=== PATIENT | female | born 1995 | race Caucasian/White ===

== ENCOUNTER 2017-01-30 20:27 | Emergency (ER) | payer BC, OTHER ==
[2017-01-30 20:35] VITALS: BP 119/71
--- NOTE | 2017-01-30 20:44 | ED ---
Upper Extremity Pain - HPI Summary HPI Summary: 21 female presents with bilateral hand pain secondary to blunt trauma from a springboard. - History of Current Complaint Chief Complaint: UCUpperExtremity Stated Complaint: BILAT HAND INJURY Time Seen by Provider: 01/30/17 20:40 Hx Obtained From: Patient Hx Last Menstrual Period: NEXPLANON Mechanism Of Injury: Blunt Trauma Onset/Duration: Started Hours Ago Timing: Constant Severity Initially: Moderate Severity Currently: Moderate Pain Location: Hand Character: Sharp Aggravating Factor(s): Movement - Allergies/Home Medications Allergies/Adverse Reactions: Allergies Allergy/AdvReac Type Severity Reaction Status Date / Time No Known Allergies Allergy Verified 01/30/17 20:31 Home Medications: Home Medications Etonogestrel [Nexplanon] 68 mg IMPLANT 01/30/17 [History] PMH/Surg Hx/FS Hx/Imm Hx Previously Healthy: Yes Endocrine/Hematology History: Denies: Hx Anticoagulant Therapy, Hx Blood Disorders, Hx Diabetes Cardiovascular History: Denies: Hx Hypertension, Hx Pacemaker/ICD History: Denies: Hx Renal Disease Sensory History: Denies: Hx Hearing Aid Psychiatric History: Denies: Hx Panic Disorder - Surgical History Surgery Procedure, Year, and Place: WISDOM TEETH Infectious Disease History: No Infectious Disease History: Denies: Traveled Outside the [place] in Last 30 Days - Family History Known Family History: Positive: None - Social History Alcohol Use: None Hx Substance Use: No Substance Use Type: Reports: None Hx Tobacco Use: No Smoking Status (MU): Never Smoked Tobacco Review of Systems Constitutional: Negative Eyes: Negative ENT: Negative Cardiovascular: Negative Respiratory: Negative Gastrointestinal: Negative Genitourinary: Negative Positive: Other - bilateral hand pain Skin: Negative Neurological: Negative Psychological: Normal All Other Systems Reviewed And Are Negative: Yes Physical Exam Triage Information Reviewed: Yes Vital Signs On Initial Exam: Initial Vitals Temp Pulse Resp BP 36.8 C 80 16 119/71 01/30/17 20:28 01/30/17 20:28 01/30/17 20:28 01/30/17 20:28 Appearance: Positive: Pain Distress Head/Face: Positive: Normal Head/Face Inspection Eyes: Positive: Normal ENT: Positive: Normal ENT inspection Neck: Positive: Supple Respiratory/Lung Sounds: Positive: Clear to Auscultation Cardiovascular: Positive: Normal Abdomen Description: Positive: Nontender Musculoskeletal: Positive: Other - bilateral hand pain Diagnostics - Vital Signs Vital Signs Temp Pulse Resp BP 01/30/17 20:28 36.8 C 80 16 119/71 - Laboratory Lab Statement: Any lab studies that have been ordered have been reviewed, and results considered in the medical decision making process. Course/Dx - Diagnoses Provider Diagnoses: Sprain of hand, left, Sprain of hand, right Discharge - Discharge Plan Condition: Stable Disposition: HOME Prescriptions: Acetaminop/Codeine 30 MG TAB* [Tylenol/Codeine 30 MG TAB*] 1 tab PO Q8H PRN #9 tab MDD 3 PRN Reason: Pain Cephalexin CAP* [Keflex 500 CAP*] 500 mg PO TID #21 cap Ibuprofen TAB* [Motrin TAB* 800 MG] 800 mg PO Q6H #30 tab Patient Education Materials: Hand Sprain (ED), Abrasion (ED) Referrals: Pop Avalos DO [Primary Care Provider] - Rupesh Asher MD [Medical Doctor] -
--- NOTE | 2017-01-30 21:05 | RAD ---
INDICATION: Bilateral hand pain COMPARISON: None TECHNIQUE: AP, lateral, and oblique views of each hand were obtained. FINDINGS: The bony structures, joint spaces, and soft tissues are normal for age. IMPRESSION: NEGATIVE BILATERAL EXAMINATION
[2017-01-30] MEDS ORDERED: Cephalexin CAP* 500 MG PO ONE (21:12)
[2017-01-30] MEDS ORDERED: Acetaminop/Codeine 30 MG TAB* 1 TAB (300 MG/30 MG) PO ONE (21:12)
[2017-01-30] MEDS ORDERED: Ibuprofen TAB* 400 MG PO ONE (21:35)
== END 2017-01-30 21:51 | disposition home or self-care (01) ==
LOC: UCEAST 20:27
DX: S63.92XA Sprain of unspecified part of left wrist and hand, initial encounter (principal); S63.91XA Sprain of unspecified part of right wrist and hand, initial encounter; W22.8XXA Striking against or struck by other objects, initial encounter; Y93.9 Activity, unspecified; Y92.9 Unspecified place or not applicable
CPT/HCPCS: 99213; A9270-GY; G0463

== ENCOUNTER 2018-02-13 19:30 | Emergency (ER) | payer OTHER ==
[2018-02-13] MEDS ORDERED: HYDROcodone/ACETAMIN 5-325 MG* 1 TAB PO ONE (21:03)
[2018-02-13 21:30] VITALS: BP 123/78
--- NOTE | 2018-02-13 22:06 | ED ---
Upper Extremity Pain - HPI Summary HPI Summary: Hamida presents to the ER with left elbow pain following a dislocation and spontaneous reduction. Patient states while diving at a swim meet she hit the bottom of the pool with her arm and it dislocated, when she resurfaced she states the elbow reduced on its own. While being pulled out of the pool the elbow dislocated again and while being examined by the show dog trainer her elbow was reduced again spontaneously. She is currently complaining of significant pain of her left elbow that began with the onset of the injury. She has a history of a ulnar collateral ligament tear of her left arm. Patient states the pain is constant and sharp. It is worse with any movement. Patient has not tried anything to improve the pain. Patient denies any numbness, tingling, or coolness to the extremity. Patient states movement of her left arm is difficult due to pain. Patient denies any radiation. - History of Current Complaint Chief Complaint: EDExtremityUpper Stated Complaint: LT ELBOW INJURY Time Seen by Provider: 02/13/18 20:13 Hx Obtained From: Patient - Trauma from diving into pool. Hx Last Menstrual Period: NEXPLANON Onset/Duration: Started Hours Ago Timing: Constant Severity Initially: Moderate Severity Currently: Moderate Pain Location: Elbow Character: Sharp, Throbbing Aggravating Factor(s): Movement, Flexion Alleviating Factor(s): Rest Associated Signs & Symptoms: Positive: Swelling Related History: Similar Episode/Dx As - Patient has history of tear to ulnar collateral ligament of the left arm. - Risk Factors DVT Risk Factors: Negative Septic Arthritis Risk Factor: Negative - Allergies/Home Medications Allergies/Adverse Reactions: Allergies Allergy/AdvReac Type Severity Reaction Status Date / Time No Known Allergies Allergy Verified 01/30/17 20:31 PMH/Surg Hx/FS Hx/Imm Hx Endocrine/Hematology History: Denies: Hx Anticoagulant Therapy, Hx Blood Disorders, Hx Diabetes Cardiovascular History: Denies: Hx Hypertension, Hx Pacemaker/ICD History: Denies: Hx Renal Disease Sensory History: Denies: Hx Hearing Aid Psychiatric History: Denies: Hx Panic Disorder - Surgical History Surgery Procedure, Year, and Place: WISDOM TEETH Infectious Disease History: No Infectious Disease History: Denies: Traveled Outside the [place] in Last 30 Days - Family History Known Family History: Positive: None - Social History Alcohol Use: None Hx Substance Use: No Substance Use Type: Reports: None Hx Tobacco Use: No Smoking Status (MU): Never Smoked Tobacco Review of Systems Constitutional: Negative Negative: Chest Pain Negative: Shortness Of Breath Positive: Decreased ROM, Edema Negative: Weakness, Numbness All Other Systems Reviewed And Are Negative: Yes Physical Exam Vital Signs On Initial Exam: Initial Vitals Temp Pulse Resp BP Pulse Ox 98.4 F 84 20 125/76 100 02/13/18 19:56 02/13/18 19:56 02/13/18 19:56 02/13/18 19:56 02/13/18 19:56 Appearance: Positive: Well-Appearing, Pain Distress Head/Face: Positive: Normal Head/Face Inspection Eyes: Positive: Normal Neck: Positive: Supple, Nontender, No Lymphadenopathy Respiratory/Lung Sounds: Positive: Clear to Auscultation, Breath Sounds Present Cardiovascular: Positive: Normal, RRR, Pulses are Symmetrical in both Upper and Lower Extremities Abdomen Description: Positive: Nontender, No Organomegaly, Soft Bowel Sounds: Positive: Present Musculoskeletal: Positive: Other - Inspection of the left elbow shows edema. Patient is able to pronate and supinate. Patient is able to extend elbow but flexion is limited secondary to pain. Sensation to light touch is intact bilaterally. Radial pulses are 2+ bilaterally. Capillary refill is <2 seconds bilaterally. Palpation of the medial aspect of the elbow elicits significant pain. Generalized tenderness noted on palpation of the elbow. Neurological: Positive: Normal, Sensory/Motor Intact, Alert, Oriented to Person Place, Time Diagnostics - Vital Signs Vital Signs Temp Pulse Resp BP Pulse Ox 02/13/18 21:29 82 16 123/78 99 02/13/18 19:56 98.4 F 84 20 125/76 100 - Laboratory Lab Statement: Any lab studies that have been ordered have been reviewed, and results considered in the medical decision making process. - Radiology No standard instances Radiology Interpretation Completed By: ED Physician - X-ray of the left elbow shows reduction. Avulsion fracture, possibly from previous injury, noted on the medial epicondyle of the left humerus. X-ray interpreted by ED PA Course/Dx - Course Course Of Treatment: Patient was seen in ED following injury to elbow during swim meet. X-ray was obtained and interpreted and showed reduction of dislocation and a possibly old avulsion fracture to medial epicondyle. Patient was given (2) Wolcott 5mg/325mg for pain control. Given sling for elbow immobilization. Patient given prescription for 3 days for pain management as needed. Patient instructed to take ibuprofen 600mg 3x daily. Patient told to follow up with ortho on Friday. Patient instructed to return to ED if pain not controlled with medication, if hand loses sensation, becomes cold, or shows signs of no blood flow. Patient and mother displayed understanding of and agreed to discharge plan. No ecchymosis is noted. Consideration for possible UCL tear or other ligamentous injury. Discussed case with Dr. Lundberg who agrees with treatment plan. Patient was seen by ED PA student, ED PA-C as well. - Diagnoses Differential Diagnosis/HQI/PQRI: Positive: Fracture (Open), Fracture (Closed), Strain, Sprain Provider Diagnoses: Elbow dislocation Discharge - Sign-Out/Discharge Documenting (check all that apply): Patient Departure - Discharge Plan Condition: Stable Disposition: HOME Prescriptions: Hydrocodone/Acetamin 10/325(NF [Wolcott 10/325 (NF)] 1 tab PO Q6H #12 tab MDD 4 Patient Education Materials: Elbow Dislocation (ED), Elbow Fracture (ED) Referrals: Zachariah Hernandez MD [Medical Doctor] - Pop Avalos DO [Primary Care Provider] - Additional Instructions: Please follow up with ortho - call Friday morning for an appt Keep arm in sling If you develop any worsening pain, numbness or tingling - return to the ED immediately - Billing Disposition and Condition Condition: STABLE Disposition: Home
== END 2018-02-13 22:16 | disposition home or self-care (01) ==
LOC: ED 19:30
DX: S53.105A Unspecified dislocation of left ulnohumeral joint, initial encounter (principal); W16.42XA Fall into unspecified water causing other injury, initial encounter; Y93.15 Activity, underwater diving and snorkeling; Y92.9 Unspecified place or not applicable; R60.0 Localized edema
CPT/HCPCS: 99282

== ENCOUNTER 2018-02-23 14:50 | Day surgery (SDC) | payer OTHER ==
[~2018-02-23 14:50] MED LIST: Buffered Lidocaine 0.9% SYRIN* 5 ML/SYR SYRINGE INTRADERM ONE; Dexamethasone TAB* 4 MG ONE; Dexamethasone TAB* 4 MG PO ONE; DiMENhydriNATE IV* 50 MG/ML VIAL IV PUSH PRN; Famotidine IV* 10 MG/ML 2 ML (20 mg) IV ONE; Famotidine IV* 10 MG/ML 2 ML (20 mg) ONE; Lactated Ringers 1000 ML Bag* 1,000 ML IV SCH; Morphine VIAL* 4 MG/ML VIAL (1 ml vial) IV PRN; Naloxone* 0.4 MG/ML 1 ML VIAL IV PRN; Ondansetron INJ* 2 MG/ML VIAL ONE; Ondansetron ODT TAB* 4 MG ONE; PROCHLORPERAZINE INJ 5 MG/ML 2 ML VIAL IV PRN; ceFAZolin 2 GM PREMIX in ORs 2 GM/50 ML BAG IVPB ONE; fentaNYL* 50 MCG/ML 2 ML VIAL (100 MCG VIAL) IV PRN; oxyCODONE/Acetamin 5/325 MG* TAB PO PRN
[2018-02-23] MEDS ORDERED: fentaNYL* 50 MCG/ML 2 ML VIAL (100 MCG VIAL) ONE (15:37)
[2018-02-23] MEDS ORDERED: KETAMINE HCL* 50 MG/ML 10 ML VIAL ONE (15:37)
[2018-02-23] MEDS ORDERED: Midazolam* 1 MG/ML 5 ML VIAL (5 MG) ONE (15:37)
[2018-02-23] MEDS ORDERED: Bupivacaine 0.25% SDV PF* 10 ML VIAL INJ ONE (16:24)
[2018-02-23] MEDS ORDERED: Ketorolac INJ* 30 MG/ML 1 ML VIAL ONE (17:13)
[2018-02-23] MEDS ORDERED: Lidocaine 2% PF * 5 ML VIAL ONE (17:13)
[2018-02-23] MEDS ORDERED: PROCHLORPERAZINE INJ 5 MG/ML 2 ML VIAL ONE (17:13)
[2018-02-23] MEDS ORDERED: Propofol* 10 MG/ML 20 ML BTL IV PUSH ONE (17:13)
[2018-02-23 19:18] VITALS: BP 115/64
--- NOTE | 2018-03-16 13:34 | OP ---
DATE OF OPERATION: 02/23/18 [facility] DATE OF : [birth year] SURGEON: Randal Pratt MD DEBEADER: CHELSEA Munoz ANESTHESIOLOGIST: Dr. Jauregui. ANESTHESIA: General with nerve block. PRE-OP DIAGNOSES: Left elbow dislocation with acute on chronic medial epicondyle fracture and tear of the ulnar collateral ligament. 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 OPERATIVE PROCEDURE: 1. UCL repair. 2. Repair of the common flexor wad. 3. Ulnar nerve in situ decompression and neurolysis. INDICATIONS: Hamida Soto is a 22-year-old female who sustained an elbow dislocation. She was reduced and then spontaneously dislocated again. She has MRI findings as well as CT findings of a chronic medial epicondyle fracture nonunion as well as the tear of the common flexor as well as the UCL. 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 The risks and benefits of surgery were discussed at length to include but not limited to bleeding, infection, damage to nerves, vessels, surrounding structures, wound nonhealing, persistent pain, need for surgery, scarring, stiffness, incomplete relief of symptoms and risk of anesthesia. COMPLICATIONS: None. ESTIMATED BLOOD LOSS: Minimal. TOURNIQUET TIME: 90 minutes. IMPLANTS USED: One SwiveLock by [employer]. DESCRIPTION OF PROCEDURE: The patient was greeted in the preoperative area by the attending surgeon. The correct extremity was marked and consent was confirmed. The patient underwent anesthesia and nerve block after which she was brought back to the operative suite, she was placed in supine position on operating room table. Her left arm was extended on the hand table. Unsterile tourniquet was placed high on the proximal arm. The left upper extremity was then prepped and draped in the usual sterile fashion beginning with chlorhexidine soap, scrub, and alcohol wipe, and a final prep with ChloraPrep. After appropriate surgical pause indicating side, site, procedure, and administration of antibiotics, the limb was exsanguinated and the tourniquet inflated. A medial incision was then centered where the medial epicondyle would have been, soft tissue carefully dissected to expose the fascia, care was taken to cheat anteriorly so as to not damage the nerve. Soft tissues were carefully exposed. The common flexor mass was visualized, it was then avulsed by about to 2 cm. There is a bony piece that was visualized, but there was no fracture hematoma and this is a well circumscribed area. This was tagged for later identification. Attention was then directed to the nerve. Proximally, the nerve was then identified, then tracked distally. The ulnar nerve tracked distally all the while to take care of releasing any adhesions. It was carefully released from the scar tissue around the medial epicondyle. The nerve was then protected throughout the entirety of the case and released in situ all the way to the FCU fascia. Once all areas were released, the nerve was identified and protected throughout the case. Attention was directed back to the elbow. The medial epicondyle donor site was then identified. Any remaining scar tissue was then carefully removed. The UCL was then identified. The plan was initially to do a UCL reconstruction, but because there was significant amount of scar tissue above the UCL distally, the decision was made to, as the tissue quality was quite good to grab this, it was to try to grab it and then place it with anchor fixation at the footprint. The footprint was then prepared with a rasp as well as an osteotome to allow for a bony bleeding bed. After this is done, the [employer] guide was then used to drill. The tunnel position was quite long and not optimal. The decision was made to not place in anchor in case there will be evidence of impingement. Instead using the UCL guide, we did a modified technique where we passed running suture through the ulnar collateral ligament proximally and then docked it into the previously placed tunnel and tied over the tunnel itself with the elbow and approximately 30 degrees of flexion and gentle varus stress. The elbow was then taken through range of motion and gentle stress and the repair appeared to be stable. Attention was then directed to the common flexor wad, the nonunion, malunion piece was then identified, it was then scalloped out because this could not be repaired successfully. A SwiveLock was then placed and the sutures were then passed through the tendon in a whipstitch fashion to whipstitch the tendon and then repaired it back to the medial epicondyle. The elbow was taken through range of motion, gentle varus and valgus stress were tested, was found to be stable. The wounds were then copiously irrigated with saline. The nerve was found to be intact and protected again throughout the entirety of the case. The skin was then closed in layers with 2-0 Vicryl and 3- 0 Monocryl. Sterile dressings were applied and a posterior splint was then applied including the risks to prevent any flexion extension of the wrist. Sterile dressings were applied. Tourniquet was deflated for a total time about an hour and a half. The patient was awoken from anesthesia, transferred back to PACU in stable condition. POSTOPERATIVE PLAN: She will be nonweightbearing. She will be in this splint for about 10 days and then transitioned to an hinged elbow brace and work on range of motion. She will be discharged on pain medication. I will see the patient back in 10 to 14 days. [id number]/[facility] #: [id number] OSORIO
== END 2018-02-23 16:15 | disposition home or self-care (01) ==
LOC: OREAST 14:50
PROVIDERS: ATTEND Orthopaedic Surgery
DX: S42.442A Displaced fracture (avulsion) of medial epicondyle of left humerus, initial encounter for closed fracture (principal); S53.442A Ulnar collateral ligament sprain of left elbow, initial encounter; X58.XXXA Exposure to other specified factors, initial encounter; Y93.12 Activity, springboard and platform diving; Y92.34 Swimming pool (public) as the place of occurrence of the external cause; G89.18 Other acute postprocedural pain
CPT/HCPCS: 76000; 81025; A9270-GY; C1713; J0690; J0780; J1885; J2250; J2704; J3010; J3490; J8540